=== PATIENT | female | born 1950 | race Caucasian/White ===

== ENCOUNTER 2019-07-09 12:57 | Emergency (ER) | payer MEDICARE, OTHER ==
[2019-07-09] MEDS ORDERED: Sodium Chloride 0.9% 10 ML Syringe FLUSH PRN (16:46)
[2019-07-09 17:18] LABS: ANION GAP 15.5; CHLORIDE,CL 95 mmol/L (101-111); SODIUM,NA 132 mmol/L (135-145)
[2019-07-09] MEDS ORDERED: Iopamidol 612 MG/ML 75 ML Bottle IVPUSH ONE (17:23)
--- NOTE | 2019-07-09 17:32 | EDM.PDOC ---
<Brina Bass - Last Filed: 07/09/19 19:56> ED HPI GENERAL MEDICAL PROBLEM - General Chief Complaint: Flank Pain Stated Complaint: ABD PAIN Time Seen by Provider: 07/09/19 16:00 Source of Information: Reports: Patient, RN, RN Notes Reviewed History Limitations: Reports: No Limitations - History of Present Illness INITIAL COMMENTS - FREE TEXT/NARRATIVE: patient to ER with complaints of upper abdominal pain, and left flank pain. Patient states she has seen her primary provider on June 26 and again on July 03. States she has had a flat and upright abdominal x-ray. This showed obstipation. Also had an ultrasound done for abdominal aorta, which she states was negative. Patient states most of June this has been going on, but she feels it's getting worse, and she states she knows there is something. She admits to nausea the last 3 nights, with no vomiting. Admits to decreased appetite, weight loss, and chills. Denies fever, vomiting, chest pain, shortness of breath. States she had noted blood in the stool after a Dulcolax suppository, small amounts of bright red blood. states she has been using suppositories and MiraLAX and having only very small explosive stools. patient states she has been told in the past that she has several adhesions. Last colonoscopy was 10 years ago. She is set up to see Dr. Bailon in the near future. Admits to history of high cholesterol and trigeminal neuralgia. only abdominal surgeries has been . Onset: Gradual Left Flank Pain Score (Numeric/FACES): 1 - Related Data Allergies Allergy/AdvReac Type Severity Reaction Status Date / Time amoxicillin trihydrate Allergy Rash Verified 07/09/19 14:10 [From Augmentin] cefaclor [From Ceclor] Allergy Itching Verified 07/09/19 14:10 erythromycin ethylsuccinate Allergy Nausea and Verified 07/09/19 14:10 [From E.E.S.] Vomiting meperidine HCl [From Demerol] Allergy Confusion Verified 07/09/19 14:10 morphine Allergy Burning on Verified 07/09/19 14:10 Urination naproxen [From Naprosyn] Allergy Cannot Verified 07/09/19 14:10 Remember potassium clavulanate Allergy Rash Verified 07/09/19 14:10 [From Augmentin] Home Meds: Home Meds Acetaminophen [Tylenol Extra Strength] 1,000 mg PO ASDIRECTED PRN 11/14/13 [ History] Aspirin [Low Dose Aspirin EC] 81 mg PO DAILY 11/14/13 [History] Loratadine [Claritin RediTabs] 10 mg PO ASDIRECTED PRN 11/14/13 [History] Lysine [L-Lysine] 500 - 1,000 mg PO DAILY 11/14/13 [History] Multivitamin [Multi Vitamin Daily] 1 - 2 caplet PO DAILY 11/14/13 [History] Simvastatin [Zocor] 60 mg PO DAILY 11/14/13 [History] Past Medical History HEENT History: Reports: Impaired Vision Other HEENT History: wears glasses Cardiovascular History: Reports: Hypertension Respiratory History: Reports: None Gastrointestinal History: Reports: None Genitourinary History: Reports: None Musculoskeletal History: Reports: None Neurological History: Reports: None Psychiatric History: Reports: None Endocrine/Metabolic History: Reports: None Hematologic History: Reports: None Oncologic (Cancer) History: Reports: None Dermatologic History: Reports: None - Infectious Disease History Infectious Disease History: Reports: Chicken Pox - Past Surgical History HEENT Surgical History: Reports: Tonsillectomy Female Surgical History: Reports: Section, Hysterectomy Social & Family History - Tobacco Use Smoking Status *Q: Never Smoker Second Hand Smoke Exposure: No - Caffeine Use Caffeine Use: Reports: Coffee - Recreational Drug Use Recreational Drug Use: No ED ROS GENERAL - Review of Systems Review Of Systems: ROS reveals no pertinent complaints other than HPI. ED EXAM, GI/ABD - Physical Exam Exam: See Below Exam Limited By: No Limitations General Appearance: Alert, WD/WN, No Apparent Distress, Anxious, Thin Eyes: Bilateral: Normal Appearance, EOMI Ears: Normal External Exam, Hearing Grossly Normal Nose: Normal Inspection Throat/Mouth: Normal Inspection Head: Atraumatic, Normocephalic Neck: Normal Inspection, Supple, Non-Tender, Full Range of Motion Respiratory/Chest: No Respiratory Distress, Lungs Clear, Normal Breath Sounds, No Accessory Muscle Use, Chest Non-Tender Cardiovascular: Normal Peripheral Pulses, Regular Rate, Rhythm, No Edema, No Gallop, No JVD, No Murmur, No Rub GI/Abdominal Exam: Normal Bowel Sounds, Soft, Tender (left upper quadrant) (Female) Exam: Deferred Rectal (Female) Exam: Deferred Back Exam: Normal Inspection, Full Range of Motion. No: CVA Tenderness (L), CVA Tenderness (R) Extremities: Normal Inspection, Normal Range of Motion, Non-Tender, Normal Capillary Refill, No Pedal Edema Neurological: Alert, Oriented, CN II-XII Intact, Normal Cognition, Normal Gait, Normal Reflexes, No Motor/Sensory Deficits Psychiatric: Normal Affect, Normal Mood, Anxious Skin Exam: Warm, Dry, Intact, Normal Color, No Rash Lymphatic: No Adenopathy Course - Vital Signs Last Recorded V/S: Last Vital Signs Temp 37.2 C 07/09/19 19:04 Pulse 84 07/09/19 19:04 Resp 18 07/09/19 19:04 BP 149/75 H 07/09/19 19:04 Pulse Ox 97 07/09/19 16:28 - Orders/Labs/Meds Orders: Active Orders 24 hr Category Date Time Status Peripheral IV Care [RC] . DIRECTED Care 07/09/19 16:46 Active Sodium Chloride 0.9% [Saline Flush] Med 07/09/19 16:46 Active 10 ml FLUSH ASDIRECTED PRN Peripheral IV Insertion Adult [OM.PC] Stat Oth 07/09/19 16:46 Ordered Medication Orders Sodium Chloride (Saline Flush) 10 ml FLUSH ASDIRECTED PRN PRN Reason: Keep Vein Open Last Admin: 07/09/19 16:56 Dose: 10 ml Labs: Laboratory Tests 07/09/19 07/09/19 07/09/19 Range/Units 14:25 16:53 16:53 WBC 11.4 H (5.0-10.0) 10^3/uL RBC 5.09 (4.2-5.4) 10^6/uL Hgb 14.9 (12.0-16.0) g/dL Hct 43.6 (37.0-47.0) % MCV 85.7 (80-100) fL MCH 29.3 (27.0-34.0) pg MCHC 34.2 (33.0-35.0) g/dL Plt Count 221 (150-450) 10^3/uL Neut % (Auto) 80.1 H (42.2-75.2) % Lymph % (Auto) 14.8 L (20.5-50.1) % [place] % (Auto) 4.6 (2-8) % Eos % (Auto) 0.2 L (1.0-3.0) % Baso % (Auto) 0.3 (0.0-1.0) % Sodium 132 L (135-145) mmol/L Potassium 4.5 (3.6-5.0) mmol/L Chloride 95 L (101-111) mmol/L Carbon Dioxide 26.0 (21.0-31.0) mmol/L Anion Gap 15.5 BUN 8 (7-18) mg/dL Creatinine 0.7 (0.6-1.3) mg/dL Est Cr Clr Drug Dosing 59.48 mL/min Estimated GFR (MDRD) > 60 BUN/Creatinine Ratio 11.42 Glucose 112 H (74-105) mg/dL Calcium 9.6 (8.4-10.2) mg/dl Total Bilirubin 0.9 (0.2-1.0) mg/dL AST 18 (10-42) IU/L ALT 11 (10-60) IU/L Alkaline Phosphatase 66 (42-121) IU/L Total Protein 7.4 (6.7-8.2) g/dl Albumin 4.4 (3.2-5.5) g/dl Globulin 3.0 Albumin/Globulin Ratio 1.47 Urine Color Yellow (YELLOW) Urine Appearance Slightly cloudy (CLEAR) Urine pH 6.0 (5.0-9.0) Ur Specific Henning >= 1.030 (1.005-1.030) Urine Protein Trace H (NEGATIVE) Urine Glucose (UA) Negative (NEGATIVE) Urine Ketones 40 H (NEGATIVE) Urine Occult Blood Trace-intact H (NEGATIVE) Urine Nitrite Negative (NEGATIVE) Urine Bilirubin Negative (NEGATIVE) Urine Urobilinogen 0.2 (0.2-1.0) mg/dL Ur Leukocyte Esterase Negative (NEGATIVE) Urine RBC 10-20 H /HPF Urine WBC 0-5 (0-5/HPF) /HPF Ur Epithelial Cells Rare (NOT SEEN) /HPF Amorphous Sediment Rare (NOT SEEN) /HPF Urine Bacteria Rare (0-FEW/HPF) /HPF Urine Mucus Moderate H (NOT SEEN) /LPF Meds: Medications Generic Name Dose Route Start Last Admin Trade Name Freq PRN Reason Stop Dose Admin Sodium Chloride 10 ml 07/09/19 16:46 07/09/19 16:56 Saline Flush FLUSH 10 ml ASDIRECTED PRN Administration Keep Vein Open Discontinued Medications Generic Name Dose Route Start Last Admin Trade Name Lucaq PRN Reason Stop Dose Admin Dicyclomine HCl 20 mg 07/09/19 20:06 Bentyl IM 07/09/19 20:07 ONETIME ONE Iopamidol 75 ml 07/09/19 17:23 07/09/19 17:46 Isovue-300 (61%) IVPUSH 07/09/19 17:24 75 ml ONETIME ONE Administration - Radiology Interpretation Free Text/Narrative:: abdomen pelvis CT with contrast: FINDINGS: Liver: 5 cm or less hepatic cysts. Gallbladder and bile ducts: Normal. No calcified stones. No ductal dilation. Pancreas: 5.5 cm heterogeneous pancreatic mass in the body of the pancreas suggestive of pancreatic malignancy. Spleen: Normal. No splenomegaly. Adrenals: Normal. No mass. Kidneys and ureters: Right renal angiomyolipoma measuring 1 cm. Right hydroureteronephrosis with no obstructing stone identified. Stomach and bowel: Unremarkable. No obstruction. No mucosal thickening. Appendix: Unable to identify the appendix. Intraperitoneal space: Small amount of pelvic ascites. Vasculature: Atherosclerosis. Lymph nodes: Unremarkable. No enlarged lymph nodes. Bladder: Unremarkable as visualized. Reproductive: Hysterectomy. Bones/joints: Unremarkable. No acute fracture. Soft tissues: Unremarkable. IMPRESSION: 1. 5.5 cm heterogeneous pancreatic mass in the body of the pancreas suggestive of pancreatic malignancy. 2. Right hydroureteronephrosis with no obstructing stone identified. Thank you for allowing us to participate in the care of your patient. Dictated and Authenticated by: Anand Orellana MD 07/09/2019 6:58 PM Central Time ([place] & [place]) See radiologist's report Departure - Departure Disposition: Home, Self-Care 01 Clinical Impression: Ureteric colic - Discharge Information Instructions: Renal Colic, [id number] Forms: ED Department Discharge Additional Instructions: 1) see clinic tomorrow for MRI SCAN OF ABDOMEN to rule out pancreatic tumour. 2) recheck if there is any change or concern <Dedrick Kearney - Last Filed: 07/09/19 20:17> Course - Re-Assessments/Exams Free Text/Narrative Re-Assessment/Exam: 07/09/19 20:15 results discussed with pt. Departure - Departure Time of Disposition: 20:16 Condition: Good
[2019-07-09] MEDS ORDERED: Dicyclomine 20 MG/2 ML SDV IM ONE (20:06)
== END 2019-07-09 20:41 | disposition home or self-care (01) ==
LOC: DL.ED 12:57
DX: N23 Unspecified renal colic (principal); I10 Essential (primary) hypertension; Z88.6 Allergy status to analgesic agent; Z88.1 Allergy status to other antibiotic agents; Z88.5 Allergy status to narcotic agent; Z88.0 Allergy status to penicillin; Z79.82 Long term (current) use of aspirin
CPT/HCPCS: 36415; 74177; 80053; 81001; 85025; 96372; 99284; 99284-25; J0500; Q9967